=== PATIENT | female | born 1975 | race Caucasian/White ===

== ENCOUNTER 2016-11-19 12:03 | Emergency (ER) | payer OTHER ==
--- NOTE | ~2016-11-19 | ER ---
PATIENT'S NAME: FREDDY MATSON [facility] AGE: 41 Y [address] ROOM: [place] [address] LOCATION: [facility] ADMIT DATE: 11/19/2016 ER/Outpatient Report DISCHARGE DATE: 11/19/2016 FAMILY PHYSICIAN: Faviola Shraif ATTENDING PHYSICIAN: Evangelista Sanz CHIEF COMPLAINT: Back pain. HISTORY OF PRESENT ILLNESS: Ms. Matson presents for 10/10 back pain, which started 3 hours prior to arrival. It is located in the left side of the low back. It does not radiate anywhere. The pain started when she bent over and she felt this a popping sensation low on the left side. She denies any pain radiating down her legs. She denies weakness, but is moving slowly secondary to her pain. No other specific symptoms. PAST MEDICAL HISTORY: Documented on the record and reviewed by me. SOCIAL HISTORY: Documented on the record and reviewed by me. MEDICATIONS: Documented on the record and reviewed by me. ALLERGIES: DOCUMENTED ON THE RECORD AND REVIEWED BY ME. REVIEW OF SYSTEMS: All systems reviewed and negative except as noted in the HPI. It is notable for no sensory deficits or changes in urine or stool habits. PHYSICAL EXAMINATION: VITAL SIGNS: Blood pressure 114/62, pulse 78, respiratory rate is 20, temperature 97.8, SpO2 is 94% on room air. Pain is rated at 10/10. GENERAL: Age appropriate female, recumbent on the exam table. No apparent pain or distress. NEUROLOGIC: Awake and alert. GCS 15. No focal deficits. No asymmetry. No weakness. No obvious sensory deficits. HEENT: Normocephalic, atraumatic. Eyes are PERRL. Oropharynx is clear. NECK: Supple. Trachea is midline. CHEST/HEART: Regular rate and rhythm. LUNGS: Even and unlabored respirations. ABDOMEN: Soft, nontender, and nondistended. PATIENT'S NAME: FREDDY MATSON [facility] AGE: 41 Y [address] ROOM: [place] [address] LOCATION: [facility] ADMIT DATE: 11/19/2016 ER/Outpatient Report DISCHARGE DATE: 11/19/2016 FAMILY PHYSICIAN: Faviola Sharif ATTENDING PHYSICIAN: Evangelista Sanz EXTREMITIES: Warm and well perfused. BACK: Nontender along the spine. No CVA tenderness. There is left lumbar paraspinal tenderness without erythema or fluctuance or warmth. SKIN: Clean, dry, intact. LABORATORY DATA AND IMAGING: Labs and imaging none. EMERGENCY DEPARTMENT COURSE: The patient was seen and evaluated at bedside. Based on her presentation, I believe the patient has acute musculoskeletal low back strain. This is consistent with back spasm. I do not think she needs imaging today. Presentation is not consistent with cauda equina or perispinal abscess. I am encouraging her to use anti-inflammatories, as well as ice, heat, rest, stretching, and activity. She should return if any decrease in her function or any sensory changes. She was given a prescription of Valium for her symptom management. She can follow up with her primary care physician as needed. MD JERAD CORONEL/connie /[id number] d: 11/28/16 1246 t: 12/04/16 0639, OUTPATIENT REPORT
== END 2016-11-19 12:26 | disposition disaster alternative care site (69) ==
LOC: GACC 12:03
DX: M54.5 Low back pain (principal); F32.9 Major depressive disorder, single episode, unspecified; Z88.2 Allergy status to sulfonamides; Z79.899 Other long term (current) drug therapy